=== PATIENT | male | born 1950 | race Caucasian/White ===

== ENCOUNTER → 2018-03-12 | Outpatient (CLI) | payer MEDICARE, OTHER | LOC: CARD 09:03 | PROVIDERS: ATTEND Nurse Practitioner Family | DX: I48.91 Unspecified atrial fibrillation (principal) | CPT/HCPCS: 93005 ==

== ENCOUNTER → 2018-03-20 | Outpatient (CLI) | payer MEDICARE, OTHER ==
[~2018-03-20] MED LIST: CATHETER FLUSH 10 ML SYR IV PRN; REGADENOSON 0.4 MG/5 ML SYR (LEXISCAN) IV ONE
[2018-03-20] MEDS: CATHETER FLUSH 10 ML SYR IV PRN ×2 (07:43→09:14)
[2018-03-20 09:12] VITALS: BP 137/89
[2018-03-20 09:15] VITALS: BP 126/62
--- NOTE | 2018-03-22 13:41 | STRESS TEST ---
DATE OF SERVICE: RESTING AND POST REGADENOSON TECHNETIUM 99M TETROFOSMIN SPECT CT IMAGING ORDERING PHYSICIAN: Sushant Greco MD, MA, FACP, FACC. PRIMARY CARE PHYSICIAN: Dr. Haji. CLINICAL DIAGNOSES: Hypertension, atrial fibrillation, obesity, hyperlipidemia. Baseline images were carried out after injection of 10.93 mCi of technetium-99m Tetrofosmin. This was followed by 0.4 mg of regadenoson and 32 mCi of technetium-99m Tetrofosmin for stress imaging. The electrocardiogram showed atrial fibrillation throughout the study. The electrocardiogram did not change significantly with the regadenoson infusion. Review of images at rest and following stress does not indicate any significant perfusion defects consistent with significant myocardial ischemia or infarction. Gated images show well preserved global left ventricular systolic function with an ejection fraction of 54%. No distinct regional wall motion abnormality was seen. CONCLUSIONS: 1. No evidence of any significant myocardial ischemia or infarction of the study. 2. Well preserved global left ventricular systolic function with ejection fraction 54%. 3. No significant regional wall motion abnormality seen on this study. Job ID: [id number] DocumentID: [id number] Dictated Date: 03/22/2018 12:02:30 Research Associate Policy Date: 03/22/2018 13:40:31 Dictated By: SUSHANT GRECO MD, MA, FACP, FACC,
== END ==
LOC: CARD 07:30
PROVIDERS: ATTEND Internal Medicine Cardiovascular Disease
DX: I48.2 Chronic atrial fibrillation (principal); R29.818 Other symptoms and signs involving the nervous system; I10 Essential (primary) hypertension; E78.4 Other hyperlipidemia; E66.8 Other obesity
CPT/HCPCS: 78452; 93017

== ENCOUNTER → 2018-03-25 | Outpatient (CLI) | payer MEDICARE, OTHER | LOC: CARD 13:41 | PROVIDERS: ATTEND Internal Medicine Cardiovascular Disease | DX: I48.2 Chronic atrial fibrillation (principal); I10 Essential (primary) hypertension; E78.4 Other hyperlipidemia; E66.9 Obesity, unspecified; I08.1 Rheumatic disorders of both mitral and tricuspid valves | CPT/HCPCS: 93225; 93226; 93306 ==

== ENCOUNTER 2018-04-23 19:36 | Outpatient (CLI) | payer MEDICARE, OTHER | END 2018-04-24 06:45 | disposition home or self-care (01) | LOC: SLEEP 19:36 | PROVIDERS: ATTEND Nurse Practitioner Family | DX: G47.33 Obstructive sleep apnea (adult) (pediatric) (principal); I48.91 Unspecified atrial fibrillation; R06.83 Snoring | CPT/HCPCS: 95811 ==

== ENCOUNTER → 2018-10-19 | Outpatient (CLI) | payer MEDICARE, OTHER ==
--- NOTE | 2018-10-19 15:54 | Diagnostic Imaging Report ---
PROCEDURE: US Thyroid. TECHNIQUE: Multiple real-time grayscale images were obtained of the thyroid in various projections. INDICATION: Thyroid nodule. COMPARISON: No prior studies are available for comparison. FINDINGS: Right lobe of the thyroid measures 2.5 x 1.2 x 1.6 cm and the left lobe measures 4.0 x 3.0 x 2.9 cm. The isthmus is approximately 3 mm in thickness. The right lobe shows fairly homogeneous echotexture. No mass is identified. There appears to be a large solid mass involving the left lobe of the thyroid measuring 3.0 cm x 3.0 cm x 3.5 cm. No internal microcalcifications are seen. There is some vascularity present. IMPRESSION: 3 cm solid left lobe thyroid mass. Fine-needle aspiration would be recommended. Dictated by: Dictated on workstation # [id number]
== END ==
LOC: RAD 14:27
PROVIDERS: ATTEND Family Medicine
DX: E04.1 Nontoxic single thyroid nodule (principal)
CPT/HCPCS: 76536

== ENCOUNTER → 2018-10-30 | Outpatient (CLI) | payer MEDICARE, OTHER ==
[~2018-10-30] VITALS: Ht 185.4 cm; Wt 98.4 kg
[~2018-10-30] MED LIST changes: -CATHETER FLUSH 10 ML SYR IV PRN; +LIDOCAINE 1% INJ 20 ML 20 ML VIAL INJ ONE; +LIDOCAINE 1% INJ 20 ML 20 ML VIAL ONE; -REGADENOSON 0.4 MG/5 ML SYR (LEXISCAN) IV ONE
--- NOTE | 2018-10-30 11:59 | Diagnostic Imaging Report ---
INDICATION: Left thyroid mass. Patient presents for ultrasound-guided thyroid biopsy. FINDINGS: Patient was brought to the procedure room, placed on the table in supine position. Ultrasound imaging over the left neck was performed to evaluate appropriate entry site. The skin of the left neck was then prepped and draped in usual sterile fashion. Small amount of 1% lidocaine was utilized for local anesthesia. Total of four passes were made into the large solid mass in the left lobe of the thyroid with 25-gauge needle. Fine-needle aspiration was performed. Total of two passes were made into the thyroid nodule with 20-gauge Temno needle and two core biopsies were obtained. Hemostasis was obtained using manual compression. Patient tolerated the procedure well and left the department in stable condition. IMPRESSION: Ultrasound-guided left lobe thyroid mass fine-needle aspiration and core biopsy, as described. Pathology results are currently pending. Dictated by: Dictated on workstation # [id number]
== END ==
LOC: RAD 10:09
PROVIDERS: ATTEND Nurse Practitioner Family
DX: E04.1 Nontoxic single thyroid nodule (principal)
CPT/HCPCS: 76942; 88173; 88305

== ENCOUNTER 2018-11-12 14:14 | Outpatient (CLI) | payer MEDICARE, OTHER ==
[~2018-11-12] VITALS: Ht 185.4 cm; Wt 105.5 kg
[2018-11-12] MEDS ORDERED: CINN500C2 PO (14:29)
[2018-11-12] MEDS ORDERED: FISH1CAP15 PO (14:29)
[2018-11-12] MEDS ORDERED: GEMF600T8 PO (14:29)
[2018-11-12] MEDS ORDERED: ROSU20TA31 PO (14:29)
[2018-11-12] MEDS ORDERED: LEVO50TA6 PO (14:29)
[2018-11-12] MEDS ORDERED: METF-397 PO (14:29)
[2018-11-12] MEDS ORDERED: ATEN1TAB3 PO (14:29)
[2018-11-12] MEDS ORDERED: APIX5TAB PO (14:29)
[2018-11-12] MEDS ORDERED: FINA5TAB6 PO (14:29)
[2018-11-12] MEDS ORDERED: TAMS0.4C98 PO (14:29)
[2018-11-12 14:39] VITALS: BP 115/74
[2018-11-12 15:43] LABS: BASOPHILS % (AUTO) 1 % (0-10); EOSINOPHILS # (AUTO) 0.1 10^3/uL (0.0-0.3); EOSINOPHILS % (AUTO) 1 % (0-10); HEMATOCRIT 40 % (40-54); HEMOGLOBIN 13.8 G/DL (13.3-17.7); LYMPHOCYTES # (AUTO) 1.9 X 10^3 (1.0-4.0); LYMPHOCYTES % (AUTO) 23 % (12-44); MEAN CORPUSCULAR HEMOGLOBIN 31 PG (25-34); MEAN CORPUSCULAR HGB CONC 34 G/DL (32-36); MEAN CORPUSCULAR VOLUME 89 FL (80-99); MEAN PLATELET VOLUME 10.4 FL (7.4-10.4); MONOCYTES # (AUTO) 0.8 X 10^3 (0.0-1.0); MONOCYTES % (AUTO) 10 % (0-12); NEUTROPHILS # (AUTO) 5.4 X 10^3 (1.8-7.8); NEUTROPHILS % (AUTO) 65 % (42-75); PLATELET COUNT 232 10^3/uL (130-400); RED CELL DISTRIBUTION WIDTH 12.9 % (10.0-14.5); WHITE BLOOD COUNT 8.2 10^3/uL (4.3-11.0)
== END 2018-11-12 16:00 | disposition home or self-care (01) ==
LOC: PREOP 14:14
PROVIDERS: ATTEND Surgery
DX: Z01.812 Encounter for preprocedural laboratory examination (principal); Z11.2 Encounter for screening for other bacterial diseases; C73 Malignant neoplasm of thyroid gland
CPT/HCPCS: 36415; 85025; 87081

== ENCOUNTER 2018-11-19 08:25 | Inpatient (IN) | payer MEDICARE, OTHER ==
[~2018-11-19] VITALS: Ht 185.4 cm; Wt 102.3 kg
[~2018-11-19 08:25] MED LIST changes: +APIX5TAB PO; +ATEN1TAB3 PO; +CINN500C2 PO; +FINA5TAB6 PO; +FISH1CAP15 PO; +GEMF600T8 PO; +LEVO50TA6 PO; -LIDOCAINE 1% INJ 20 ML 20 ML VIAL INJ ONE; -LIDOCAINE 1% INJ 20 ML 20 ML VIAL ONE; +METF-397 PO; +ROSU20TA31 PO; +TAMS0.4C98 PO
[2018-11-19] MEDS ORDERED: ceFAZolin 2 GM IV Premixed 50 ML ONE (08:48)
[2018-11-19] MEDS ORDERED: HYDROCORTISONE 100 MG/2 ML (Solu-CORTEF) VIAL IV ONE (09:15)
[2018-11-19] MEDS ORDERED: CATHETER FLUSH 10 ML SYR IV PRN (09:30)
[2018-11-19] MEDS ORDERED: ceFAZolin 2 GM IV Premixed 50 ML IV ONE (09:30)
[2018-11-19 09:36] VITALS: BP 124/83
[2018-11-19] MEDS ORDERED: BUP/EPI 0.5% 1:200,000 (SENSORCAINE) 30 ML VIAL ONE (09:36)
[2018-11-19] MEDS ORDERED: DEXAMETHASONE 10 MG/ML (DECADRON) 1 ML VIAL ONE (10:20)
[2018-11-19] MEDS ORDERED: LIDOCAINE PF 0.5% 50 ML (XYLOCAINE) VIAL ONE (10:20)
[2018-11-19] MEDS ORDERED: ROCURONIUM 10 MG/ML 5 ML SYRINGE IV ONE (10:20)
[2018-11-19] MEDS ORDERED: proPOfol 200 MG/20 ML (DIPRIVAN) VIAL IV ONE (10:20)
[2018-11-19] MEDS ORDERED: MIDAZOLAM 2 MG/2 ML (VERSED) VIAL ONE (10:20)
[2018-11-19] MEDS ORDERED: fentaNYL INJECTION 100 MCG/2 ML AMP ONE (10:20)
[2018-11-19] MEDS ORDERED: ONDANSETRON 4 MG/2 ML (SDV) Z0FRAN ONE (10:20)
[2018-11-19] MEDS ORDERED: SEVOFLURANE (ULTANE) 15 ML INHAL SOLN ONE ×7 (10:20→12:27)
--- NOTE | 2018-11-19 10:22 | Progress Note-Pre Operative ---
Pre-Operative Progress Note H&P Reviewed The H&P was reviewed, patient examined and no changes noted. 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
[2018-11-19] MEDS ORDERED: oxyCODONE/APAP 5/325MG (PERCOCET 5) TABLET PO PRN (10:30)
[2018-11-19] MEDS ORDERED: ACETAMINOPHEN 325 MG TABLET PO PRN (10:30)
[2018-11-19] MEDS ORDERED: ONDANSETRON 4 MG/2 ML (SDV) Z0FRAN IVP PRN ×2 (10:30→13:00)
[2018-11-19] MEDS ORDERED: morphine INJ 10 MG/ML 1ML (SYR OR VIAL) IVP PRN (10:30)
[2018-11-19] MEDS ORDERED: LACTATED RINGERS 1,000 ML IV SCH (11:30)
[2018-11-19] MEDS ORDERED: GLYCOPYRROLATE 0.2 MG/ML (ROBINUL) 2 ML VIAL ONE (12:23)
[2018-11-19] MEDS ORDERED: NEOSTIGMINE 1 MG/ML 5 ML SYRINGE ONE (12:23)
--- NOTE | 2018-11-19 12:30 | Progress Note-Post Operative ---
Post-Operative Progess Note Surgeon (s)/Exhibit Display Representative (s) Surgeon AMOS RINALDI MD Exhibit Display Representative: joseph davenport PHYSICAL SCIENCE TEACHER Pre-Operative Diagnosis left thyroid hurthle cell ca Post-Operative Diagnosis same, no lyphadenopathy, no capsular extension. Procedure & Operative Findings Date of Procedure 11/19/18 Procedure Performed/Findings total thyroidectomy Anesthesia Type GET Estimated Blood Loss Estimated blood loss (mL): minimal Specimens/Packing Specimens Removed thryroid gland AMOS RINALDI MD Nov 19, 2018 12:29
[2018-11-19] MEDS ORDERED: HYDROmorphone 2 MG/ML VIAL (DILAUDID) IV ONE (13:00)
[2018-11-19] MEDS ORDERED: HYDROmorphone 2 MG/ML VIAL (DILAUDID) ONE (13:01)
[2018-11-19 13:50] VITALS: BP 143/65
[2018-11-19 16:03] VITALS: BP 121/61
--- NOTE | 2018-11-19 17:56 | OPERATIVE REPORT ---
DATE OF SERVICE: 11/19/2018 ATTENDING PRIMARY CARE PHYSICIAN: Dr. Haji. 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 PROCEDURE: Total thyroidectomy. SURGEON: Amos Truong MD BOXING PROMOTER: Jairo Cerrato APRN ANESTHESIA: General endotracheal. ESTIMATED BLOOD LOSS: Minimal. FINDINGS: A 3 cm mass within the entirety of the thyroid capsule with no extracapsular invasion. No lymphadenopathy noted. DISPOSITION: The patient tolerated the procedure well. INDICATIONS: The patient is a 68-year-old male, who was referred for a routine cardiac workup in 09/2018. A carotid ultrasound was performed, which did show a significant size mass of the left thyroid gland, approximately 3 cm in size and solid. He was then referred for an ultrasound-guided biopsy, which did come back positive for a Hurthle cell carcinoma. He reports that he has been hypothyroid for a number of years. He does not report any symptoms of hypo or hyperthyroidism. He also does not have any dysphagia or respiratory issues and states that he was asymptomatic otherwise. DESCRIPTION OF PROCEDURE: The patient was brought to the operating room, laid supine on the table. After adequate IV pain and sedating medications and general endotracheal intubation, the patient was then placed in a semi [place] position. The face and neck and chest were then prepped and draped in standard surgical fashion. We then measured approximately 2 fingerbreadths from the cricoid cartilage inferior and marked this with a marking pen. Along the glabellar lines, I created a 6 cm incision using a 15 blade. The subcutaneous tissue was then dissected using electrocautery until the platysma was identified and opened transversely using electrocautery. We then proceeded to create superior and inferior flaps using blunt dissection as well as electrocautery. The middle jugular vein was identified and spared throughout the process. The median raphe was then opened using electrocautery vertically. We first proceeded with dissection of the left thyroid lobe including the mass. There is no extracapsular invasion as well as no lymphadenopathy. We proceeded with lateral to medial dissection, first dissecting up the middle thyroid vein and ligating this with the Sonicision. We then retracted the lobe medially and proceeded with dissection of the superior thyroidal artery and vein using a dissector elevator. These were then cauterized and transected using the Sonicision. We then proceeded with identification of the inferior thyroidal artery and vein and dissected similarly and ligated the vessels. We then proceeded again with lateral to medial dissection identifying the recurrent laryngeal nerve as well as the superior and inferior parathyroid glands and left these intact. We proceeded until the trachea identified and continue our dissection including the isthmus and pyramidal lobe. Good hemostasis was observed. We directed our attention to dissection of the right lobe of the thyroid gland. The strap muscles were retracted laterally and we proceeded with lateral to medial dissection in a similar manner. The middle thyroid vein was identified, dissected out using an elevator dissector and cauterized and transected using the Sonicision. The superior thyroid artery and vein were then identified, dissected and ligated. In a similar manner, the inferior thyroid vessels were identified, dissected and ligated. The recurrent laryngeal nerve as well as the superior and inferior right-sided parathyroid glands were identified and left intact. We then proceeded with dissection of the right thyroid lobe off of the trachea completing our total thyroidectomy and sent this to pathology. Good hemostasis was observed. The wound was then irrigated and suctioned. The median raphe was then approximated using 3-0 Vicryl running suture. The platysma was then reapproximated using 3-0 Vicryl interrupted suture and the skin was closed using 4-0 Monocryl running silk suture. Wound was then cleaned and covered with Dermabond. The patient tolerated the procedure well. We will admit him for 23-hour observation and start a DYS 2 mechanical soft diet and follow a.m. calcium. We will also await the pathology results and he will need to follow up for his primary care physician to adjust his thyroid replacement. dosages. We will also await the pathology results and refer him to Oncology for further therapy, which may include whole body radioactive thyroid scan and possible ablative therapy. Job ID: [id number] DocumentID: [id number] Dictated Date: 11/19/2018 12:45:35 Taxicab Starter Date: 11/19/2018 17:56:07 Dictated By: AMOS TRUONG MD
[2018-11-19 19:44] VITALS: BP 121/73
[2018-11-19] MEDS ORDERED: HYDR-34 PO (20:22)
--- NOTE | 2018-11-19 20:23 | Discharge Inst-Surgical ---
D/C Lap Instructions-GENTRY New, Converted, or Re-Newed RX: RX on Chart Follow Up Appt in 2 weeks Activity as tolerated No driving for 24 hours Incentive Spirometry use every 2 hours while awake Regular Diet Symptoms to Report: Fever over 101 degree F, Nausea/Vomiting Infection Signs and Symptoms to report: Increased redness, Foul odor of wound, Increased drainage Bathing instructions: May shower Operative Area Clean/Dry; Keep incision clean/dry If any problems/questions: Contact your physician or go to Emergency Room AMOS RINALDI MD Nov 19, 2018 20:23
[2018-11-19 23:33] VITALS: BP 115/64
[2018-11-20 03:42] VITALS: BP 123/58
[2018-11-20 08:00] VITALS: BP 119/75
--- NOTE | 2018-11-20 09:23 | Anesthesia-General Post-Op ---
General Patient Condition Mental Status/LOC: Same as Preop Cardiovascular: Satisfactory Nausea/Vomiting: Absent Respiratory: Satisfactory Pain: Controlled Complications: Absent Post Op Complications Complications Hoarse Raspy voice. No SOB. Follow Up Care/Instructions Patient Instructions None needed. Anesthesia/Patient Condition Patient Condition Patient is doing well, no complaints, stable vital signs, no apparent adverse anesthesia problems. No complications reported per nursing. KAMALJIT SCRUGGS CRNA Nov 20, 2018 09:23
[2018-11-20 11:23] VITALS: BP 119/75
== END 2018-11-20 11:26 | disposition home or self-care (01) | DRG 627 ==
LOC: 4TH 08:25 → SURG 08:26 → EDSTATUS 10:15 → 4TH 13:50
PROVIDERS: ADMIT Surgery; ATTEND Surgery
PROC: 0GTK0ZZ Resection of Thyroid Gland, Open Approach (ICD-10-PCS; principal; 2018-11-19 10:38)
DX: C73 Malignant neoplasm of thyroid gland (principal); I10 Essential (primary) hypertension; I48.91 Unspecified atrial fibrillation; E11.9 Type 2 diabetes mellitus without complications; E03.9 Hypothyroidism, unspecified; E78.00 Pure hypercholesterolemia, unspecified; G47.33 Obstructive sleep apnea (adult) (pediatric); N40.0 Benign prostatic hyperplasia without lower urinary tract symptoms; Z79.01 Long term (current) use of anticoagulants; Z79.84 Long term (current) use of oral hypoglycemic drugs
CPT/HCPCS: 36415; 82310; 82962

== ENCOUNTER → 2019-01-15 | Outpatient (CLI) | payer MEDICARE, OTHER ==
[~2019-01-15] MED LIST changes: +HOLD METFORMIN - RECEIVED CONTRAST 20 ML VIAL IV SCH; +HYDR-34 PO
[2019-01-15] MEDS: IOHEXOL 350 MG/ML 100 ML (OMNIPAQUE 350) VIAL IV ONE (08:21)
--- NOTE | 2019-01-15 08:42 | Diagnostic Imaging Report ---
INDICATION: Thyroid carcinoma. Axial imaging through the neck and chest was performed after the administration of intravenous contrast. No prior studies are available for comparison. CT neck: Visualized intracranial structures are unremarkable. Posterior nasopharynx, oropharynx and larynx are unremarkable. Thyroid appears to be surgically absent. No residual thyroid tissue or mass is seen. Submandibular and parotid glands appear to be symmetric bilaterally. Normal sized submandibular and jugulodigastric lymph nodes are seen bilaterally. Posterior cervical space is unremarkable. No fluid collections are seen. IMPRESSION: Status post thyroidectomy. No residual or recurrent thyroid mass is detected. No cervical lymphadenopathy is detected. CT chest: No axillary lymphadenopathy is detected. No definite mediastinal or hilar lymphadenopathy is detected. There is no pericardial or pleural fluid identified. No pulmonary nodules or masses are seen. Upper abdomen is unremarkable. IMPRESSION: Unremarkable CT of the chest. There is no evidence of thoracic lymphadenopathy or pulmonary metastatic disease. Dictated by: Dictated on workstation # [id number]
== END ==
LOC: RAD 07:48
PROVIDERS: ATTEND Internal Medicine Hematology & Oncology
DX: C73 Malignant neoplasm of thyroid gland (principal); Z90.89 Acquired absence of other organs
CPT/HCPCS: 70491; 71260

== ENCOUNTER 2019-02-16 14:14 | Outpatient (RCR) | payer MEDICARE, OTHER ==
[2019-01-12 13:52] LABS: BASOPHILS % (AUTO) 1 % (0-10); EOSINOPHILS # (AUTO) 0.1 10^3/uL (0.0-0.3); EOSINOPHILS % (AUTO) 1 % (0-10); HEMATOCRIT 40 % (40-54); HEMOGLOBIN 13.6 G/DL (13.3-17.7); LYMPHOCYTES # (AUTO) 1.8 X 10^3 (1.0-4.0); LYMPHOCYTES % (AUTO) 24 % (12-44); MEAN CORPUSCULAR HEMOGLOBIN 31 PG (25-34); MEAN CORPUSCULAR HGB CONC 34 G/DL (32-36); MEAN CORPUSCULAR VOLUME 90 FL (80-99); MONOCYTES # (AUTO) 0.7 X 10^3 (0.0-1.0); MONOCYTES % (AUTO) 9 % (0-12); NEUTROPHILS # (AUTO) 4.9 X 10^3 (1.8-7.8); NEUTROPHILS % (AUTO) 65 % (42-75); PLATELET COUNT 219 10^3/uL (130-400); RED CELL DISTRIBUTION WIDTH 13.7 % (10.0-14.5); WHITE BLOOD COUNT 7.6 10^3/uL (4.3-11.0)
[2019-01-12 14:16] LABS: ALANINE AMINOTRANSFERASE 29 U/L (0-55); ALBUMIN 4.5 GM/DL (3.2-4.5); ALKALINE PHOSPHATASE 60 U/L (40-136); BILIRUBIN,TOTAL 0.5 MG/DL (0.1-1.0); BUN/CREATININE RATIO 19; CALCIUM 9.7 MG/DL (8.5-10.1); CARBON DIOXIDE 27 MMOL/L (21-32); CHLORIDE 101 MMOL/L (98-107); CREATININE SERUM 1.02 MG/DL (0.60-1.30); GFR ESTIMATED > 60; GLUCOSE 174 MG/DL (70-105); POTASSIUM 3.6 MMOL/L (3.6-5.0); SODIUM 137 MMOL/L (135-145); TOTAL PROTEIN 7.6 GM/DL (6.4-8.2)
[2019-02-12 08:03] LABS: BASOPHILS % (AUTO) 1 % (0-10); EOSINOPHILS # (AUTO) 0.1 10^3/uL (0.0-0.3); EOSINOPHILS % (AUTO) 2 % (0-10); HEMATOCRIT 41 % (40-54); HEMOGLOBIN 13.7 G/DL (13.3-17.7); LYMPHOCYTES # (AUTO) 1.3 X 10^3 (1.0-4.0); LYMPHOCYTES % (AUTO) 22 % (12-44); MEAN CORPUSCULAR HEMOGLOBIN 30 PG (25-34); MEAN CORPUSCULAR HGB CONC 34 G/DL (32-36); MEAN CORPUSCULAR VOLUME 90 FL (80-99); MEAN PLATELET VOLUME 10.5 FL (7.4-10.4); MONOCYTES # (AUTO) 0.9 X 10^3 (0.0-1.0); MONOCYTES % (AUTO) 15 % (0-12); NEUTROPHILS # (AUTO) 3.5 X 10^3 (1.8-7.8); NEUTROPHILS % (AUTO) 60 % (42-75); PLATELET COUNT 203 10^3/uL (130-400); RED CELL DISTRIBUTION WIDTH 13.2 % (10.0-14.5); WHITE BLOOD COUNT 5.9 10^3/uL (4.3-11.0)
[2019-02-12 08:20] LABS: ALANINE AMINOTRANSFERASE 30 U/L (0-55); ALBUMIN 4.3 GM/DL (3.2-4.5); ALKALINE PHOSPHATASE 57 U/L (40-136); BILIRUBIN,TOTAL 0.6 MG/DL (0.1-1.0); BUN/CREATININE RATIO 18; CALCIUM 9.5 MG/DL (8.5-10.1); CARBON DIOXIDE 25 MMOL/L (21-32); CHLORIDE 102 MMOL/L (98-107); CREATININE SERUM 0.84 MG/DL (0.60-1.30); GFR ESTIMATED > 60; GLUCOSE 112 MG/DL (70-105); POTASSIUM 3.7 MMOL/L (3.6-5.0); SODIUM 137 MMOL/L (135-145); TOTAL PROTEIN 7.3 GM/DL (6.4-8.2)
[~2019-02-16 14:14] MED LIST changes: -HOLD METFORMIN - RECEIVED CONTRAST 20 ML VIAL IV SCH
== END 2019-03-22 | disposition home or self-care (01) ==
LOC: ONC 14:14
PROVIDERS: ATTEND Internal Medicine Hematology & Oncology
DX: C73 Malignant neoplasm of thyroid gland (principal); I10 Essential (primary) hypertension; I48.2 Chronic atrial fibrillation; E11.9 Type 2 diabetes mellitus without complications; E03.9 Hypothyroidism, unspecified; E78.00 Pure hypercholesterolemia, unspecified; G47.33 Obstructive sleep apnea (adult) (pediatric); N40.0 Benign prostatic hyperplasia without lower urinary tract symptoms; Z79.01 Long term (current) use of anticoagulants; Z79.84 Long term (current) use of oral hypoglycemic drugs; Z79.899 Other long term (current) drug therapy
CPT/HCPCS: 36415; 80053; 84432; 84443; 85025; 86800; 99213; 99214

== ENCOUNTER 2019-07-13 13:56 | Outpatient (RCR) | payer MEDICARE, OTHER ==
[2019-05-14 08:27] LABS: BASOPHILS % (AUTO) 1 % (0-10); EOSINOPHILS # (AUTO) 0.1 10^3/uL (0.0-0.3); EOSINOPHILS % (AUTO) 2 % (0-10); HEMATOCRIT 44 % (40-54); HEMOGLOBIN 14.4 G/DL (13.3-17.7); LYMPHOCYTES # (AUTO) 1.5 X 10^3 (1.0-4.0); LYMPHOCYTES % (AUTO) 26 % (12-44); MEAN CORPUSCULAR HEMOGLOBIN 30 PG (25-34); MEAN CORPUSCULAR HGB CONC 33 G/DL (32-36); MEAN CORPUSCULAR VOLUME 90 FL (80-99); MEAN PLATELET VOLUME 10.2 FL (7.4-10.4); MONOCYTES # (AUTO) 0.8 X 10^3 (0.0-1.0); MONOCYTES % (AUTO) 14 % (0-12); NEUTROPHILS # (AUTO) 3.3 X 10^3 (1.8-7.8); NEUTROPHILS % (AUTO) 57 % (42-75); PLATELET COUNT 208 10^3/uL (130-400); RED CELL DISTRIBUTION WIDTH 13.2 % (10.0-14.5); WHITE BLOOD COUNT 5.8 10^3/uL (4.3-11.0)
[2019-05-14 08:50] LABS: ALANINE AMINOTRANSFERASE 27 U/L (0-55); ALBUMIN 4.3 GM/DL (3.2-4.5); ALKALINE PHOSPHATASE 65 U/L (40-136); BILIRUBIN,TOTAL 0.5 MG/DL (0.1-1.0); BUN/CREATININE RATIO 19; CALCIUM 9.3 MG/DL (8.5-10.1); CARBON DIOXIDE 27 MMOL/L (21-32); CHLORIDE 104 MMOL/L (98-107); CREATININE SERUM 0.79 MG/DL (0.60-1.30); GFR ESTIMATED > 60; GLUCOSE 122 MG/DL (70-105); POTASSIUM 3.9 MMOL/L (3.6-5.0); SODIUM 139 MMOL/L (135-145); TOTAL PROTEIN 7.5 GM/DL (6.4-8.2)
[2019-07-02 08:16] LABS: BASOPHILS % (AUTO) 1 % (0-10); EOSINOPHILS # (AUTO) 0.2 10^3/uL (0.0-0.3); EOSINOPHILS % (AUTO) 3 % (0-10); HEMATOCRIT 44 % (40-54); HEMOGLOBIN 14.8 G/DL (13.3-17.7); LYMPHOCYTES # (AUTO) 1.6 X 10^3 (1.0-4.0); LYMPHOCYTES % (AUTO) 28 % (12-44); MEAN CORPUSCULAR HEMOGLOBIN 30 PG (25-34); MEAN CORPUSCULAR HGB CONC 34 G/DL (32-36); MEAN CORPUSCULAR VOLUME 90 FL (80-99); MEAN PLATELET VOLUME 10.4 FL (7.4-10.4); MONOCYTES # (AUTO) 0.7 X 10^3 (0.0-1.0); MONOCYTES % (AUTO) 13 % (0-12); NEUTROPHILS # (AUTO) 3.1 X 10^3 (1.8-7.8); NEUTROPHILS % (AUTO) 55 % (42-75); PLATELET COUNT 223 10^3/uL (130-400); RED CELL DISTRIBUTION WIDTH 13.1 % (10.0-14.5); WHITE BLOOD COUNT 5.6 10^3/uL (4.3-11.0)
[2019-07-02 08:37] LABS: ALANINE AMINOTRANSFERASE 28 U/L (0-55); ALBUMIN 4.4 GM/DL (3.2-4.5); ALKALINE PHOSPHATASE 66 U/L (40-136); BILIRUBIN,TOTAL 0.6 MG/DL (0.1-1.0); BUN/CREATININE RATIO 19; CALCIUM 9.5 MG/DL (8.5-10.1); CARBON DIOXIDE 27 MMOL/L (21-32); CHLORIDE 101 MMOL/L (98-107); CREATININE SERUM 0.85 MG/DL (0.60-1.30); GFR ESTIMATED > 60; GLUCOSE 123 MG/DL (70-105); POTASSIUM 3.8 MMOL/L (3.6-5.0); SODIUM 138 MMOL/L (135-145); TOTAL PROTEIN 7.4 GM/DL (6.4-8.2)
[~2019-07-13 13:56] MED LIST changes: -ROSU20TA31 PO; +ROSU20TA32 PO; -TAMS0.4C98 PO; +TMSL.4C PO
== END 2019-08-12 | disposition home or self-care (01) ==
LOC: ONC 13:56
PROVIDERS: ATTEND Internal Medicine Hematology & Oncology
DX: C73 Malignant neoplasm of thyroid gland (principal); I10 Essential (primary) hypertension; E11.9 Type 2 diabetes mellitus without complications; E03.9 Hypothyroidism, unspecified; E78.00 Pure hypercholesterolemia, unspecified; G47.33 Obstructive sleep apnea (adult) (pediatric); N40.0 Benign prostatic hyperplasia without lower urinary tract symptoms; Z79.01 Long term (current) use of anticoagulants; Z79.84 Long term (current) use of oral hypoglycemic drugs; Z79.899 Other long term (current) drug therapy
CPT/HCPCS: 36415; 80053; 84432; 84443; 85025; 86800; 99213

== ENCOUNTER → 2019-12-24 | Outpatient (CLI) | payer MEDICARE, OTHER ==
[2019-12-24 08:49] LABS: ALANINE AMINOTRANSFERASE 29 U/L (0-55); ALBUMIN 4.3 GM/DL (3.2-4.5); ALKALINE PHOSPHATASE 67 U/L (40-136); BILIRUBIN,TOTAL 0.6 MG/DL (0.1-1.0); BUN/CREATININE RATIO 16; CALCIUM 9.5 MG/DL (8.5-10.1); CARBON DIOXIDE 26 MMOL/L (21-32); CHLORIDE 102 MMOL/L (98-107); CHOLESTEROL 127 MG/DL (< 200); CREATININE SERUM 0.81 MG/DL (0.60-1.30); GFR ESTIMATED > 60; GLUCOSE 129 MG/DL (70-105); HDL CHOLESTEROL 37 MG/DL (40-60); POTASSIUM 3.6 MMOL/L (3.6-5.0); SODIUM 137 MMOL/L (135-145); TOTAL PROTEIN 7.6 GM/DL (6.4-8.2); TRIGLYCERIDES 123 MG/DL (<150); VLDL CHOLESTEROL 25 MG/DL (5-40)
== END ==
LOC: LAB 08:02
PROVIDERS: ATTEND Family Medicine
DX: E78.5 Hyperlipidemia, unspecified (principal); E11.9 Type 2 diabetes mellitus without complications; I10 Essential (primary) hypertension
CPT/HCPCS: 36415; 80053; 80061; 83036

== ENCOUNTER 2020-01-03 13:59 | Outpatient (RCR) | payer MEDICARE, OTHER ==
[2019-12-24 08:21] LABS: BASOPHILS % (AUTO) 1 % (0-10); EOSINOPHILS # (AUTO) 0.1 10^3/uL (0.0-0.3); EOSINOPHILS % (AUTO) 2 % (0-10); HEMATOCRIT 43 % (40-54); LYMPHOCYTES # (AUTO) 1.8 X 10^3 (1.0-4.0); LYMPHOCYTES % (AUTO) 29 % (12-44); MEAN CORPUSCULAR HEMOGLOBIN 30 PG (25-34); MEAN CORPUSCULAR HGB CONC 35 G/DL (32-36); MEAN CORPUSCULAR VOLUME 86 FL (80-99); MEAN PLATELET VOLUME 10.2 FL (7.4-10.4); MONOCYTES # (AUTO) 0.7 X 10^3 (0.0-1.0); MONOCYTES % (AUTO) 11 % (0-12); NEUTROPHILS # (AUTO) 3.6 X 10^3 (1.8-7.8); NEUTROPHILS % (AUTO) 57 % (42-75); PLATELET COUNT 243 10^3/uL (130-400); RED CELL DISTRIBUTION WIDTH 13.5 % (10.0-14.5); WHITE BLOOD COUNT 6.2 10^3/uL (4.3-11.0)
[2019-12-24 08:42] LABS: BUN/CREATININE RATIO 16; CARBON DIOXIDE 25 MMOL/L (21-32); CHLORIDE 102 MMOL/L (98-107); CREATININE SERUM 0.79 MG/DL (0.60-1.30); POTASSIUM 3.6 MMOL/L (3.6-5.0); SODIUM 138 MMOL/L (135-145)
[2019-12-24 08:43] LABS: ALANINE AMINOTRANSFERASE 28 U/L (0-55); ALBUMIN 4.3 GM/DL (3.2-4.5); ALKALINE PHOSPHATASE 67 U/L (40-136); BILIRUBIN,TOTAL 0.6 MG/DL (0.1-1.0); CALCIUM 9.4 MG/DL (8.5-10.1); GFR ESTIMATED > 60; GLUCOSE 128 MG/DL (70-105); TOTAL PROTEIN 7.6 GM/DL (6.4-8.2)
== END 2020-03-23 | disposition home or self-care (01) ==
LOC: ONC 13:59
PROVIDERS: ATTEND Internal Medicine Hematology & Oncology
DX: C73 Malignant neoplasm of thyroid gland (principal); I10 Essential (primary) hypertension; E11.9 Type 2 diabetes mellitus without complications; E03.9 Hypothyroidism, unspecified; E78.00 Pure hypercholesterolemia, unspecified; G47.33 Obstructive sleep apnea (adult) (pediatric); N40.0 Benign prostatic hyperplasia without lower urinary tract symptoms; Z79.01 Long term (current) use of anticoagulants; Z79.84 Long term (current) use of oral hypoglycemic drugs; Z79.899 Other long term (current) drug therapy
CPT/HCPCS: 80053; 84432; 84443; 85025; 86800; 99213

== ENCOUNTER 2020-06-27 13:11 | Outpatient (RCR) | payer MEDICARE, OTHER ==
[2020-06-20 08:23] LABS: BASOPHILS # (AUTO) 0.1 10^3/uL (0.0-0.1); BASOPHILS % (AUTO) 1 % (0-10); EOSINOPHILS # (AUTO) 0.1 10^3/uL (0.0-0.3); EOSINOPHILS % (AUTO) 2 % (0-10); HEMATOCRIT 45 % (40-54); HEMOGLOBIN 14.8 g/dL (13.3-17.7); LYMPHOCYTES # (AUTO) 1.7 10^3/uL (1.0-4.0); LYMPHOCYTES % (AUTO) 27 % (12-44); MEAN CORPUSCULAR HEMOGLOBIN 30 pg (25-34); MEAN CORPUSCULAR HGB CONC 33 g/dL (32-36); MEAN CORPUSCULAR VOLUME 89 fL (80-99); MEAN PLATELET VOLUME 10.1 fL (9.0-12.2); MONOCYTES # (AUTO) 0.8 10^3/uL (0.0-1.0); MONOCYTES % (AUTO) 14 % (0-12); NEUTROPHILS # (AUTO) 3.5 10^3/uL (1.8-7.8); NEUTROPHILS % (AUTO) 56 % (42-75); PLATELET COUNT 228 10^3/uL (130-400); WHITE BLOOD COUNT 6.2 10^3/uL (4.3-11.0)
[2020-06-20 08:54] LABS: ALANINE AMINOTRANSFERASE 27 U/L (0-55); ALBUMIN 4.3 GM/DL (3.2-4.5); ALKALINE PHOSPHATASE 68 U/L (40-136); BILIRUBIN,TOTAL 0.6 MG/DL (0.1-1.0); BUN/CREATININE RATIO 17; CALCIUM 9.4 MG/DL (8.5-10.1); CARBON DIOXIDE 25 MMOL/L (21-32); CHLORIDE 103 MMOL/L (98-107); CREATININE SERUM 0.82 MG/DL (0.60-1.30); GFR ESTIMATED > 60; GLUCOSE 117 MG/DL (70-105); SODIUM 139 MMOL/L (135-145); TOTAL PROTEIN 7.6 GM/DL (6.4-8.2)
== END 2020-09-18 | disposition home or self-care (01) ==
LOC: ONC 13:11
PROVIDERS: ATTEND Internal Medicine Hematology & Oncology
DX: C73 Malignant neoplasm of thyroid gland (principal); I10 Essential (primary) hypertension; E11.9 Type 2 diabetes mellitus without complications; E03.9 Hypothyroidism, unspecified; E78.00 Pure hypercholesterolemia, unspecified; G47.33 Obstructive sleep apnea (adult) (pediatric); N40.0 Benign prostatic hyperplasia without lower urinary tract symptoms; Z79.01 Long term (current) use of anticoagulants; Z79.84 Long term (current) use of oral hypoglycemic drugs; Z79.899 Other long term (current) drug therapy
CPT/HCPCS: 80053; 84432; 84443; 85025; 86800; 99213

== ENCOUNTER 2020-12-19 13:07 | Outpatient (RCR) | payer MEDICARE, OTHER ==
[2020-12-12 08:16] LABS: BASOPHILS # (AUTO) 0.1 10^3/uL (0.0-0.1); BASOPHILS % (AUTO) 1 % (0-10); EOSINOPHILS # (AUTO) 0.3 10^3/uL (0.0-0.3); EOSINOPHILS % (AUTO) 4 % (0-10); HEMATOCRIT 43 % (40-54); HEMOGLOBIN 14.3 g/dL (13.3-17.7); LYMPHOCYTES # (AUTO) 1.8 10^3/uL (1.0-4.0); LYMPHOCYTES % (AUTO) 29 % (12-44); MEAN CORPUSCULAR HEMOGLOBIN 30 pg (25-34); MEAN CORPUSCULAR HGB CONC 34 g/dL (32-36); MEAN CORPUSCULAR VOLUME 90 fL (80-99); MEAN PLATELET VOLUME 10.4 fL (9.0-12.2); MONOCYTES # (AUTO) 0.7 10^3/uL (0.0-1.0); MONOCYTES % (AUTO) 12 % (0-12); NEUTROPHILS # (AUTO) 3.3 10^3/uL (1.8-7.8); NEUTROPHILS % (AUTO) 54 % (42-75); PLATELET COUNT 211 10^3/uL (130-400); WHITE BLOOD COUNT 6.1 10^3/uL (4.3-11.0)
[2020-12-12 08:35] LABS: ALANINE AMINOTRANSFERASE 33 U/L (0-55); ALBUMIN 4.2 GM/DL (3.2-4.5); ALKALINE PHOSPHATASE 68 U/L (40-136); BILIRUBIN,TOTAL 0.5 MG/DL (0.1-1.0); BUN/CREATININE RATIO 19; CALCIUM 9.3 MG/DL (8.5-10.1); CARBON DIOXIDE 25 MMOL/L (21-32); CHLORIDE 105 MMOL/L (98-107); GFR ESTIMATED > 60; GLUCOSE 114 MG/DL (70-105); POTASSIUM 3.8 MMOL/L (3.6-5.0); SODIUM 141 MMOL/L (135-145); TOTAL PROTEIN 7.5 GM/DL (6.4-8.2)
[~2020-12-19 13:07] MED LIST changes: -GEMF600T8 PO; +GEMF600T88 PO
== END 2021-03-12 | disposition home or self-care (01) ==
LOC: ONC 13:07
PROVIDERS: ATTEND Internal Medicine Hematology & Oncology
DX: C73 Malignant neoplasm of thyroid gland (principal); D36.7 Benign neoplasm of other specified sites; E89.0 Postprocedural hypothyroidism; E78.5 Hyperlipidemia, unspecified; I48.20 Chronic atrial fibrillation, unspecified; I25.10 Atherosclerotic heart disease of native coronary artery without angina pectoris; I10 Essential (primary) hypertension; E11.9 Type 2 diabetes mellitus without complications; N40.0 Benign prostatic hyperplasia without lower urinary tract symptoms; Z79.84 Long term (current) use of oral hypoglycemic drugs; Z79.899 Other long term (current) drug therapy; Z79.01 Long term (current) use of anticoagulants; Z90.49 Acquired absence of other specified parts of digestive tract
CPT/HCPCS: 80053; 84432; 84443; 85025; 86800; 99213

== ENCOUNTER 2021-06-19 14:07 | Outpatient (RCR) | payer MEDICARE, OTHER ==
[2021-06-12 08:27] LABS: BASOPHILS # (AUTO) 0.1 10^3/uL (0.0-0.1); BASOPHILS % (AUTO) 1 % (0-10); EOSINOPHILS # (AUTO) 0.2 10^3/uL (0.0-0.3); EOSINOPHILS % (AUTO) 3 % (0-10); HEMATOCRIT 42 % (40-54); HEMOGLOBIN 14.3 g/dL (13.3-17.7); LYMPHOCYTES # (AUTO) 1.7 10^3/uL (1.0-4.0); LYMPHOCYTES % (AUTO) 28 % (12-44); MEAN CORPUSCULAR HEMOGLOBIN 31 pg (25-34); MEAN CORPUSCULAR HGB CONC 34 g/dL (32-36); MEAN CORPUSCULAR VOLUME 91 fL (80-99); MEAN PLATELET VOLUME 10.2 fL (9.0-12.2); MONOCYTES # (AUTO) 0.7 10^3/uL (0.0-1.0); MONOCYTES % (AUTO) 12 % (0-12); NEUTROPHILS # (AUTO) 3.4 10^3/uL (1.8-7.8); NEUTROPHILS % (AUTO) 56 % (42-75); PLATELET COUNT 209 10^3/uL (130-400); WHITE BLOOD COUNT 6.1 10^3/uL (4.3-11.0)
[2021-06-12 09:22] LABS: ALBUMIN 4.2 GM/DL (3.2-4.5); BILIRUBIN,TOTAL 0.7 MG/DL (0.1-1.0); CALCIUM 9.8 MG/DL (8.5-10.1); CREATININE SERUM 0.82 MG/DL (0.60-1.30); TOTAL PROTEIN 7.4 GM/DL (6.4-8.2)
== END 2021-09-07 | disposition home or self-care (01) ==
LOC: ONC 14:07
PROVIDERS: ATTEND Internal Medicine Hematology & Oncology
DX: C73 Malignant neoplasm of thyroid gland (principal); D36.7 Benign neoplasm of other specified sites; E89.0 Postprocedural hypothyroidism; E78.5 Hyperlipidemia, unspecified; I48.20 Chronic atrial fibrillation, unspecified; I25.10 Atherosclerotic heart disease of native coronary artery without angina pectoris; I10 Essential (primary) hypertension; E11.9 Type 2 diabetes mellitus without complications; N40.0 Benign prostatic hyperplasia without lower urinary tract symptoms; Z79.84 Long term (current) use of oral hypoglycemic drugs; Z79.899 Other long term (current) drug therapy; Z79.01 Long term (current) use of anticoagulants; Z90.49 Acquired absence of other specified parts of digestive tract
CPT/HCPCS: 80053; 84432; 84443; 85025; 86800; 99213

== ENCOUNTER → 2021-10-19 | Outpatient (CLI) | payer MEDICARE, OTHER | LOC: CARD 10:00 → MERGE 10:00 | PROVIDERS: ATTEND Nurse Practitioner Family | DX: I34.0 Nonrheumatic mitral (valve) insufficiency (principal) | CPT/HCPCS: 93306 ==

== ENCOUNTER 2021-12-03 09:59 | Outpatient (RCR) | payer MEDICARE, OTHER ==
[2021-11-27 08:25] LABS: HEMATOCRIT 43 % (40-54); HEMOGLOBIN 14.6 g/dL (13.3-17.7); MEAN CORPUSCULAR HEMOGLOBIN 31 pg (25-34); MEAN CORPUSCULAR HGB CONC 34 g/dL (32-36); MEAN CORPUSCULAR VOLUME 90 fL (80-99); MEAN PLATELET VOLUME 10.1 fL (9.0-12.2); PLATELET COUNT 218 10^3/uL (130-400); WHITE BLOOD COUNT 5.4 10^3/uL (4.3-11.0)
[2021-11-27 08:44] LABS: ALBUMIN 4.2 GM/DL (3.2-4.5); BILIRUBIN,TOTAL 0.7 MG/DL (0.1-1.0); CALCIUM 9.4 MG/DL (8.5-10.1); CREATININE SERUM 0.84 MG/DL (0.60-1.30); POTASSIUM 3.8 MMOL/L (3.6-5.0)
== END 2021-12-06 ==
LOC: ONC 09:59
PROVIDERS: ATTEND Internal Medicine Hematology & Oncology
DX: C73 Malignant neoplasm of thyroid gland (principal); I25.10 Atherosclerotic heart disease of native coronary artery without angina pectoris; I48.20 Chronic atrial fibrillation, unspecified; E11.9 Type 2 diabetes mellitus without complications; E03.8 Other specified hypothyroidism; E78.5 Hyperlipidemia, unspecified; I10 Essential (primary) hypertension; E66.9 Obesity, unspecified; Z90.49 Acquired absence of other specified parts of digestive tract; Z90.89 Acquired absence of other organs
CPT/HCPCS: 80053; 84442; 85027; 86376; 86800; 99213

== ENCOUNTER 2022-12-02 09:05 | Outpatient (RCR) | payer MEDICARE, OTHER ==
[2022-11-22 08:15] LABS: BASOPHILS # (AUTO) 0.1 10^3/uL (0.0-0.1); BASOPHILS % (AUTO) 1 % (0-10); EOSINOPHILS # (AUTO) 0.2 10^3/uL (0.0-0.3); EOSINOPHILS % (AUTO) 3 % (0-10); HEMATOCRIT 44 % (40-54); HEMOGLOBIN 15.3 g/dL (13.3-17.7); LYMPHOCYTES # (AUTO) 2.1 10^3/uL (1.0-4.0); LYMPHOCYTES % (AUTO) 33 % (12-44); MEAN CORPUSCULAR HEMOGLOBIN 31 pg (25-34); MEAN CORPUSCULAR HGB CONC 35 g/dL (32-36); MEAN CORPUSCULAR VOLUME 89 fL (80-99); MEAN PLATELET VOLUME 10.1 fL (9.0-12.2); MONOCYTES # (AUTO) 0.8 10^3/uL (0.0-1.0); MONOCYTES % (AUTO) 13 % (0-12); NEUTROPHILS # (AUTO) 3.1 10^3/uL (1.8-7.8); NEUTROPHILS % (AUTO) 50 % (42-75); PLATELET COUNT 221 10^3/uL (130-400); WHITE BLOOD COUNT 6.2 10^3/uL (4.3-11.0)
[2022-11-22 08:41] LABS: ALBUMIN 4.3 GM/DL (3.2-4.5); BILIRUBIN,TOTAL 0.6 MG/DL (0.1-1.0); CALCIUM 9.7 MG/DL (8.5-10.1); CREATININE SERUM 0.85 MG/DL (0.60-1.30); POTASSIUM 3.4 MMOL/L (3.6-5.0); TOTAL PROTEIN 7.7 GM/DL (6.4-8.2)
[2022-11-22 09:02] LABS: FREE T4 (FREE THYROXINE) 1.47 NG/DL (0.70-1.48)
== END 2022-12-06 | disposition home or self-care (01) ==
LOC: ONC 09:05
PROVIDERS: ATTEND Internal Medicine Hematology & Oncology
DX: C73 Malignant neoplasm of thyroid gland (principal); I48.20 Chronic atrial fibrillation, unspecified; I10 Essential (primary) hypertension; E78.2 Mixed hyperlipidemia; E66.9 Obesity, unspecified; E11.9 Type 2 diabetes mellitus without complications; G47.33 Obstructive sleep apnea (adult) (pediatric); Z68.32 Body mass index [BMI] 32.0-32.9, adult; Z98.890 Other specified postprocedural states; Z90.89 Acquired absence of other organs
CPT/HCPCS: 36415; 80053; 84432; 84439; 84443; 85025; 86800